=== PATIENT | female | born 1970 | race Caucasian/White ===

== ENCOUNTER 2021-06-01 10:51 | Emergency (ER) | payer SELFPAY ==
[2021-06-01] MEDS ORDERED: AUGMENTIN 875-1 EACH PO (13:51)
[2021-06-01] MEDS ORDERED: IBUPROFEN600 MG PO (13:52)
== END 2021-06-01 13:54 | disposition home or self-care (01) ==
LOC: ER1 10:51
DX: K04.7 Periapical abscess without sinus (principal)
CPT/HCPCS: 99282

== ENCOUNTER 2021-06-02 14:27 | Emergency (ER) | payer SELFPAY ==
[~2021-06-02 14:27] MED LIST: AUGMENTIN 875-1 EACH PO; IBUPROFEN600 MG PO
[2021-06-02 15:48] LABS: HEMOGLOBIN 15.1 gm/dl (12.3-15.3); RED BLOOD COUNT 5.09 M/UL (4.00-5.10); WHITE BLOOD COUNT 7.2 K/UL (4.5-11.0)
[2021-06-02 16:13] LABS: BUN/CREATININE RATIO 20 (0-10)
== END 2021-06-02 19:52 | disposition home or self-care (01) ==
LOC: ER1 14:27
PROVIDERS: Nurse Practitioner
DX: K04.7 Periapical abscess without sinus (principal); E11.9 Type 2 diabetes mellitus without complications; I10 Essential (primary) hypertension
CPT/HCPCS: 41800; 70487; 80048; 85025; 85652; 86140; 99284; J1885; Q9967

== ENCOUNTER 2021-06-06 20:27 | Emergency (ER) | payer OTHER ==
[2021-06-06] MEDS ORDERED: ZOFRAN ODT 4 MG4 MG PO ×2 (23:39→23:47)
[2021-06-06] MEDS ORDERED: PROVENTIL HFA6.7 GM INH ×2 (23:39→23:47)
== END 2021-06-06 23:45 | disposition home or self-care (01) ==
LOC: ER1 20:27
DX: U07.1 COVID-19 (principal); R53.83 Other fatigue; E11.9 Type 2 diabetes mellitus without complications; E78.5 Hyperlipidemia, unspecified; I10 Essential (primary) hypertension; Z90.710 Acquired absence of both cervix and uterus; Z91.041 Radiographic dye allergy status; Z88.8 Allergy status to other drugs, medicaments and biological substances
CPT/HCPCS: 0240U; 71046; 87081; 87880; 99283

== ENCOUNTER → 2021-06-09 | Outpatient (CLI) | payer OTHER ==
[~2021-06-09] VITALS: Ht 175.3 cm; Wt 102.1 kg
[~2021-06-09] MED LIST changes: +PROVENTIL HFA6.7 GM INH; +ZOFRAN ODT 4 MG4 MG PO
== END ==
LOC: EROP 12:09
DX: U07.1 COVID-19 (principal); Z23 Encounter for immunization; E11.9 Type 2 diabetes mellitus without complications; I10 Essential (primary) hypertension; D84.9 Immunodeficiency, unspecified
CPT/HCPCS: M0247; Q0247

== ENCOUNTER → 2021-11-19 | Outpatient (CLI) | payer OTHER | LOC: HEART 5 14:00 | DX: I10 Essential (primary) hypertension (principal); M34.9 Systemic sclerosis, unspecified; R00.2 Palpitations; I51.7 Cardiomegaly | CPT/HCPCS: 93306 ==